=== PATIENT | female | born 2000 | race Caucasian/White ===

== ENCOUNTER 2020-05-30 18:13 | Emergency (ER) | payer OTHER, BC ==
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
[2020-05-30] MEDS ORDERED: Bupivacaine 0.5% 10 ML SDV INJECT ONE ×2 (18:55→19:35)
[2020-05-30 19:03] VITALS: BP 157/99; PULSE 111
== END 2020-05-30 20:30 | disposition home or self-care (01) ==
LOC: LL.ED 18:13
DX: S52.502A Unspecified fracture of the lower end of left radius, initial encounter for closed fracture (principal); Z88.8 Allergy status to other drugs, medicaments and biological substances; V89.2XXA Person injured in unspecified motor-vehicle accident, traffic, initial encounter
CPT/HCPCS: 25605; 73100-LT; 73110-LT; 99283-25; 99284; J3490